=== PATIENT | female | born 1995 | race Caucasian/White ===

== ENCOUNTER → 2017-07-25 | Outpatient (CLI) | payer OTHER ==
[2017-07-25 14:39] LABS: URINE APPEARANCE TURBID (CLEAR); URINE BILIRUBIN NEG (NEG); URINE COLOR YELLOW; URINE EPITHELIAL CELL AUTO 0-5 /lpf (0-5); URINE NITRITE NEG (NEG); URINE PH 5.5 (4.5-7.5); URINE SPECIFIC GRAVITY 1.021 (1.000-1.030); UROBILINOGEN NEG (NEG)
[2017-07-25 14:40] LABS: MANUAL MICROSCOPIC REQUIRED? NO; REVIEW REQ? NO
[2017-07-28 02:24] LABS: CHLAMYDIA TRACH RNA*** NOT DETECTED (NOT DETECTED); GC (NEIS GONORRHOEAE)RNA** NOT DETECTED (NOT DETECTED)
== END | disposition home or self-care (01) ==
LOC: C.LABSPEC 14:00
PROVIDERS: ATTEND Physician Assistant
DX: R35.0 Frequency of micturition (principal)

== ENCOUNTER → 2017-07-25 | Outpatient (CLI) | payer OTHER | END | disposition home or self-care (01) | LOC: C.PAPS 14:11 | PROVIDERS: ATTEND Physician Assistant | DX: Z12.4 Encounter for screening for malignant neoplasm of cervix (principal) ==

== ENCOUNTER 2017-09-27 01:33 | Emergency (ER) | payer OTHER ==
[~2017-09-27] VITALS: Ht 162.6 cm; Wt 53.0 kg
[2017-09-27 01:35] VITALS: TEMP 36.7; Ht 162.6 cm; Wt 53.0 kg
[2017-09-27] MEDS ORDERED: ALBUT/IPRATROP 3MG/0.5MG NEB 3 ML VIAL INH STA (01:50)
[2017-09-27 02:42] VITALS: BP 107/70; PULSE 82; O2SAT 100
[2017-09-27] MEDS ORDERED: VNTHFA/IN INH (02:44)
[2017-09-27] MEDS ORDERED: METH4PAK PO (02:44)
[2017-09-27] MEDS ORDERED: ALBUTEROL HFA 8 GM INHALER INH ONE (02:45)
--- NOTE | 2017-09-27 02:45 | EMERGENCY ROOM VISIT NOTE ---
History First contact with patient: 01:36 Chief Complaint: RESPIRATORY PROBLEMS Stated Complaint: ASTHMA FLARE UP Nursing Triage Summary: pt reports ran out of inhaler X 1 month " asthma started getting worse 2 days ago" History of Present Illness The patient is a 22 year old female who presents to the Emergency Room with complaints of an asthma flare. She reports that she has been having worsening asthma symptoms for the past 2 days. She reports shortness of breath, wheezing and tightness in her chest. She denies a cough. She denies chest pain. She states her asthma usually flares up due to dust or pollen. She usually uses an inhaler at home, but states that she ran out of her inhaler one month ago. She recently moved to the area and does not have a primary care provider. She takes no other medications for her asthma. She denies any previous hospitalization or intubation for her asthma. Review of Systems A complete 10 point review of systems was reviewed with the patient with pertinent positives and negatives as per history of present illness. All else were negative. Past Medical/Surgical History Medical Problems: (1) Asthma Social History Smoking Status: Never Smoker Marital Status: single Housing Status: lives with significant other Occupation Status: employed Current/Historical Medications Scheduled Albuterol Hfa (Ventolin Hfa), 2 PUFFS INH QID Methylprednisolone (Medrol Dosepak), 0 PO DAILY Physical Exam Vital Signs Date Time Temp Pulse Resp B/P (MAP) Pulse Ox O2 Delivery O2 Flow Rate FiO2 09/27/17 02:42 82 16 107/70 100 Room Air 09/27/17 01:35 36.7 86 24 118/61 95 Room Air Physical Exam VITALS: Vitals are noted on the nurse's note and reviewed by myself. Vital signs stable. GENERAL: This is a 22-year-old female, in no acute distress, nondiaphoretic, well-developed well-nourished. SKIN: The skin was without rashes. EARS: External auditory canals clear, tympanic membranes pearly corona without erythema or effusion bilaterally. EYES: Pupils equal round and reactive to light and accommodation. NOSE: Patent, turbinates without inflammation or discharge. MOUTH: Mucous membranes moist. Tonsils are not enlarged. Pharynx without erythema or exudate. NECK: Supple without nuchal rigidity. No lymphadenopathy. HEART: Regular rate and rhythm without murmurs gallops or rubs. LUNGS: End expiratory wheezes heard throughout. No retractions or accessory muscle use. NEURO: Patient was alert and oriented to person place and time. Medical Decision & Procedures Medications Administered Medications (Trade) Dose Ordered Sig/Danita Route Start Time Stop Time Status Last Admin Dose Admin Albuterol/ Ipratropium (Duoneb) 3 ml NOW STAT INH 09/27/17 01:50 09/27/17 01:52 DC 09/27/17 01:50 3 ML Albuterol (Ventolin Hfa Inhaler) 2 puffs NOW ONCE INH 09/27/17 02:45 09/27/17 02:46 DC 09/27/17 02:51 2 PUFFS ED Course The patient was evaluated as above. Patient was medicated with a DuoNeb treatment. Patient was reevaluated and was feeling much better. Her lung exam is significantly improved. Discharge instructions were reviewed with the patient. The patient verbalized understanding of my assessment and treatment plan and was discharged home in good condition. Medical Decision Differential diagnosis includes asthma exacerbation, URI, pneumonia, among others. The patient is a 22-year-old female who presents today complaining of and exacerbation of her asthma. She does have some wheezes on exam. She was treated with a DuoNeb with significant improvement. The patient has recently ran out of her albuterol inhaler. She was given an inhaler as well as a prescription for Medrol Dosepak. She was encouraged to find a local PCP to follow up with. She will return with worsening shortness of breath or any other new/concerning symptoms. Based on the patient's presentation and work up, I feel the patient is stable for outpatient treatment. The patient was educated to return to the emergency department for any worsening of their current condition or new/concerning symptoms. She will follow up with a PCP. Medication Reconcilliation Current Medication List: was personally reviewed by tn Blood Pressure Screening Patient's blood pressure: Normal blood pressure Impression Primary Impression: Asthma exacerbation Departure Information Dispostion Home / Self-Care Condition GOOD Prescriptions Methylprednisolone (MEDROL DOSEPAK) 4 Mg L[place]ito 0 PO DAILY, #1 PKT Prov: Klaudia Gómez PA-C 09/27/17 Albuterol Hfa (VENTOLIN HFA) 200 Puffs/78931 Mcg Aers 2 PUFFS INH QID, #1 INHALER 1 Refill Prov: Klaudia Gómez PA-C 09/27/17 Referrals No Doctor, Assigned (PCP) Patient Instructions My [facility] Additional Instructions You have been prescribed a Medrol Dosepak. This is a steroid which will help decrease your inflammation. Take the medicine as prescribed. Take the ENTIRE 6 day course of the steroids. Albuterol inhaler as needed for shortness of breath/cough. Follow-up with a primary care provider. You have been given a list of local PCPs to make an appointment with. Return to the emergency department with any worsening shortness of breath, coughing up blood, or new/concerning symptoms.
== END 2017-09-27 02:52 | disposition home or self-care (01) ==
LOC: C.EDB 01:34
DX: J45.901 Unspecified asthma with (acute) exacerbation (principal)